=== PATIENT | male | born 1970 | race African-American/Black ===

== ENCOUNTER → 2020-05-08 | Outpatient (CLI) | payer OTHER ==
[~2020-05-08] VITALS: Ht 177.8 cm; Wt 114.4 kg
[~2020-05-08] MED LIST: COLACE 100100 MG/CAP PO; NATURAL IRON65 MG PO; VITAMIN D250 MCG PO
[2020-05-08 06:47] VITALS: BP 141/86; PULSE 67
[2020-05-08 07:42] VITALS: BP 144/82; PULSE 61
[2020-05-08 07:44] VITALS: BP 168/83; PULSE 86
[2020-05-08 07:45] VITALS: BP 165/85; PULSE 88
[2020-05-08 07:46] VITALS: BP 160/80; PULSE 83
== END ==
LOC: COL.CARD 06:30
DX: Z01.818 Encounter for other preprocedural examination (principal); N18.6 End stage renal disease; I25.10 Atherosclerotic heart disease of native coronary artery without angina pectoris
CPT/HCPCS: A9500; J2785